=== PATIENT | male | born 1995 ===

== ENCOUNTER 2017-03-30 16:10 | Emergency (ER) | payer SELFPAY ==
--- NOTE | 2017-03-30 16:36 | UC ---
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 Endorses tingling throughout the foot and ankle. Denies temperature changes. Slight discoloration over the dorsum of the foot. Unable to flex and extend. Unable to twist the foot. Pain is 8/10 and constant. Denies health problems but states his "heart races when I run." Injury occurred at noon and he has been unable to ambulate since that time. - History of Current Complaint Chief Complaint: UCLowerExtremity Stated Complaint: RT FOOT INJURY-WC Time Seen by Provider: 03/30/17 16:15 Hx Obtained From: Patient Onset/Duration: Sudden Onset Severity Initially: Moderate Severity Currently: Moderate Pain Intensity: 8 Pain Scale Used: 0-10 Numeric Aggravating Factor(s): Standing, Ambulation Alleviating Factor(s): Rest, Elevation Able to Bear Weight: No - Risk Factors Gout Risk Factors: Male DVT Risk Factors: Negative Septic Arthritis Risk Factor: Negative - Allergies/Home Medications Allergies/Adverse Reactions: Allergies Allergy/AdvReac Type Severity Reaction Status Date / Time No Known Allergies Allergy Verified 03/30/17 16:23 Home Medications: Home Medications Ibuprofen TAB* [Advil TAB*] 2 tab PO Q6H PRN 03/30/17 [History Confirmed ] PMH/Surg Hx/FS Hx/Imm Hx Previously Healthy: Yes - Family History Known Family History: Positive: Unknown - Social History Occupation: Employed Full-time Lives: With Family Alcohol Use: None Substance Use Type: None Smoking Status (MU): Never Smoked Tobacco Review of Systems Constitutional: Negative Skin: Negative ENT: Negative Respiratory: Negative Motor: Decreased ROM Neurovascular: Decreased Sensation Musculoskeletal: Decreased ROM Neurological: Negative Psychological: Negative All Other Systems Reviewed And Are Negative: Yes Physical Exam Triage Information Reviewed: Yes Appearance: Well-Appearing, No Pain Distress, Well-Nourished Vital Signs Reviewed: Yes Eye Exam: Normal Neck exam: Normal Neck: Positive: Nontender, No Lymphadenopathy Respiratory Exam: Normal Respiratory: Positive: Chest non-tender Cardiovascular Exam: Normal Cardiovascular: Positive: RRR Musculoskeletal: Positive: Strength Limited @ - dorsiflexion and plantarflexion ; unable to twist foot, ROM Limited @ Neurological: Positive: Alert Psychological: Positive: Normal Response To Family, Age Appropriate Behavior Lower Extremity Course/Dx - Course Course Of Treatment: Patient presents s/p heavy object dropping on foot. Unable to dorsiflexion and plantarflexion; unable to twist foot. Endorses tingling but denies temperature changes. Xray shows trasnverse non-diplaced second metatarsal fracture. 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 Follow up with Dr. Bishop. - Differential Dx/Diagnosis Differential Diagnosis/HQI/PQRI: Contusion, Sprain, Strain, Tendonitis Provider Diagnoses: Metatarsal Fracture Discharge - Discharge Plan Condition: Stable Disposition: HOME Patient Education Materials: Foot Fracture in Adults (ED) Referrals: Mitchell Singer MD [Medical Doctor] - No Primary Care Phys,NOPCP [Primary Care Provider] - Additional Instructions: [id number] with a follow-up visit in three to five days. The injury should be iced and elevated higher than the level of the heart for the first [address] Follow up with [address] Bihsop. Crutches for ambulation given. Ibuprofen 600mg three times daily with meals for pain. Follow up with orthopedic physician in 5-7 days. If numbness, tingling, decreased sensation, increased pain, temperature changes or pallor noted in toes, come back to ER immediately. Protect the area. For your comfort level, do not bear weight, pull or push until you can injury is somewhat healed. This may involve the need for immobilization or crutches for a period of time. Rest the involved area, but not too long. You may need to be off your injury for some time to allow for healing, however excessive immobilization of joints can lead to stiffness and delay healing time. Early mobilization is encouraged if it is pain-free. Ice. Not directly on the skin. Cover with a towel. Apply ice no more than 30 minutes at a time Compression: You may use and keep an endy wrap bandage over the injury to decrease swelling. Again, this should be limited and be taken off periodically to encourage early range of motion and mobilization. Elevate: Try to elevate the injured area above the heart whenever possible.
--- NOTE | 2017-03-30 17:02 | RAD ---
INDICATION: Right foot injury. TECHNIQUE: 3 views of the right foot were obtained. FINDINGS: There is soft tissue swelling dorsal to the metatarsal bones. There is a transverse nondisplaced fracture through the distal diaphysis of the second metatarsal bone. No other fractures are seen. Joint spaces appear maintained. IMPRESSION: TRANSVERSE NONDISPLACED FRACTURE OF THE SECOND METATARSAL BONE.
== END 2017-03-30 17:43 | disposition home or self-care (01) ==
LOC: UCCORT 16:10
DX: S92.324A Nondisplaced fracture of second metatarsal bone, right foot, initial encounter for closed fracture (principal); W20.8XXA Other cause of strike by thrown, projected or falling object, initial encounter; Y93.9 Activity, unspecified; Y92.9 Unspecified place or not applicable; Y99.9 Unspecified external cause status
CPT/HCPCS: 99201; G0463